=== PATIENT | male | born 1985 | race African-American/Black ===

== ENCOUNTER 2023-01-15 15:11 | Emergency (ER) | payer OTHER ==
[~2023-01-15] VITALS: Ht 177.8 cm; Wt 84.1 kg
[2023-01-15 15:25] VITALS: BP 117/70; PULSE 70; RESP 18; TEMP 98
== END 2023-01-15 17:54 | disposition left against medical advice (07) ==
LOC: EMS 15:21
DX: R21 Rash and other nonspecific skin eruption (principal); Z53.21 Procedure and treatment not carried out due to patient leaving prior to being seen by health care provider
CPT/HCPCS: 99281; Z7502